=== PATIENT | female | born 1965 | race Caucasian/White ===

== ENCOUNTER → 2018-05-31 10:05 | Emergency (ER) | payer BC ==
[~2018-05-31 10:05] MED LIST: Ammonia Inhalant* 1 EA AMP ONE; Iohexol 350* (CONTRAST) 500 ML MDV IV ONE; NS 0.9% 1000 ML* 1,000 ML IV ONE; Ondansetron INJ* 2 MG/ML VIAL IV ONE
--- NOTE | 2018-05-31 10:18 | ED ---
Altered Mental Status - HPI Summary HPI Summary: Pt presents via ambulance w/ slowed mental status and loss of vision and ARAUJO this morning - took ibuprofen - ARAUJO better - intermittent dizziness w/ nausea. Dry mouth started yesterday - had to wire puller while driving yesterday as well d /t change in vision - friend drove her home Has been taking sudafed q 4 hrs for URI past week Takes synthroid and BP med Denies OverDose Drinks glass of wine nightly Has not urinated or eaten in a few days d/t not feeling well w/ "flu" - steroids listed on med list - admits taking these for "flu" - no issues w/ taking steroids in past MRI in 2017 - normal non-contrast - followed by Dr. Spencer for ??? EEG in 2016 normal Pt's called on phone and reports vertigo x 3 months - comes and lasts for 2-3 days at a time Pt is still working - had to leave once for dizziness and blurred vision - was seen by urgent care and rx'd meclizine (has difficulty getting in w/ PCP) - unsure if effective No fam h/o MS, seizure, stroke - History Of Current Complaint Stated Complaint: DIZZINESS Hx Obtained From: Patient - Allergies/Home Medications Allergies/Adverse Reactions: Allergies Allergy/AdvReac Type Severity Reaction Status Date / Time No Known Allergies Allergy Verified 01/29/16 11:06 PMH/Surg Hx/FS Hx/Imm Hx Previously Healthy: Yes Endocrine/Hematology History: Reports: Hx Thyroid Disease - hypothyroidism - takes levothyroxine Denies: Hx Diabetes Cardiovascular History: Reports: Hx Hypertension - per pt, on benicar - no med listed? Denies: Hx Pacemaker/ICD Respiratory History: Denies: Hx Asthma, Hx Chronic Obstructive Pulmonary Disease (COPD) GI History: Denies: Hx Gastrointestinal Bleed, Hx Ulcer History: Denies: Hx Renal Disease Musculoskeletal History: Denies: Hx Osteoporosis Sensory History: Denies: Hx Cataracts, Hx Eye Injury, Hx Eye Prosthesis, Hx Glaucoma, Hx Legally Blind, Hx Macular Degeneration, Hx Vision Problem, Hx Hearing Aid Neurological History: Reports: Other Neuro Impairments/Disorders - EEG in 2016 ( normal); MRI in 2017 (normal); h/o "vertigo" Denies: Hx CVA, Hx Dementia - dx'd w/ dementia by Johanna but this was rescinded as pt threatened to panda, Hx Headaches, Hx Migraine, Hx Peripheral Neuropathy, Hx Seizures, Hx Spinal Cord Injury, Hx Transient Ischemic Attacks ( TIA) Psychiatric History: Reports: Other Psychiatric Issues/Disorders - "mood d/o" - takes lamictal and valium PRN Denies: Hx Panic Disorder - Cancer History Hx Chemotherapy: No Hx Radiation Therapy: No - Surgical History Surgery Procedure, Year, and Place: BREAST REDUCTION 30+ YRS Infectious Disease History: Denies: Hx Hepatitis, Hx Human Immunodeficiency Virus (HIV) - Family History Family History: No FHx of Breast CA - Social History Occupation: Employed Full-time - counselor in school system Lives: With Family - has been out of town taking care of father on hospice Alcohol Use: Daily Alcohol Amount: wine Hx Substance Use: No Substance Use Type: Reports: None Hx Tobacco Use: No Smoking Status (MU): Never Smoked Tobacco Review of Systems Positive: Fatigue Eyes: Other - loss of vision ENT: Other - dry mouth - URI sx Cardiovascular: Negative Respiratory: Negative Gastrointestinal: Negative Genitourinary: Other - reports lack of urination Musculoskeletal: Negative Skin: Negative Positive: Headache, Weakness - generalized. Negative: Paresthesia, Numbness, Syncope Psychological: Other - stress - no kelli SI All Other Systems Reviewed And Are Negative: Yes Physical Exam Triage Information Reviewed: Yes Vital Signs Reviewed: Yes Appearance: Positive: Well-Nourished, Ill-Appearing - pt is lethargic, dry mouth , slow to respond to questions - appears disoriented but is alert and oriented x 3 Skin: Positive: Warm, Skin Color Reflects Adequate Perfusion, Dry - no ecchymosis, no signs of self harm Head/Face: Positive: Normal Head/Face Inspection - atraumatic Eyes: Positive: BARBY - dilated but reactive, Conjunctiva Clear, Other: - pt's eyelids are closed and she doesn't open them - does not follow finger. Negative : Conjunctiva Inflammed, Discharge ENT: Positive: Hearing grossly normal, TMs normal, Uvula midline, Other - oral mucosa extremely dry - dry peeling skin about nares. Negative: Nasal congestion , Nasal drainage, Tonsillar swelling, Tonsillar exudate, Trismus, Muffled voice , Hoarse voice Neck: Positive: Supple, Nontender, No Lymphadenopathy Respiratory/Lung Sounds: Positive: Clear to Auscultation, Breath Sounds Present. Negative: Rales, Rhonchi, Stridor, Tracheal Deviation, Wheezes Cardiovascular: Positive: Normal, RRR, S1, S2. Negative: Murmur, Rub, Leg Edema Left, Leg Edema Right Abdomen Description: Positive: Nontender, No Organomegaly, Soft Bowel Sounds: Positive: Present Neurological: Positive: Other - generalized weakness - drops arm when attempted to hand her emesis bag d/t c/o nausea - Enrique Coma Scale Best Eye Response: 2 - To Pain Best Motor Response: 6 - Obeys Commands - squeezes my hand when asked although weakly Best Verbal Response: 4 - Confused - provides most of history but slow to respond and does not have answers to all questions Coma Scale Total: 12 Diagnostics - Laboratory Result Diagrams: 05/31/18 10:24 05/31/18 10:23 Lab Statement: Any lab studies that have been ordered have been reviewed, and results considered in the medical decision making process. Re-Evaluation - Re-Evaluation First Eval Re-Evaluation Time: 11:26 Change: Unchanged Comment: Claims that she woke up feeling drugged and could not see. She is taking medication for her blood pressure. Denies a headache or neck stiffness. No meningismus. Second Eval Re-Evaluation Time: 11:30 Change: Unchanged Comment: Pt claims that she feels like she had vertigo. Has had vertigo. Yesterday while driving to work she claims that she had blurry vision lasting for one hour. When trying to get ready for work today she claims that she could not see. She reports that she has had a cold. She denies photophobia. Vital signs in room 78 bpm, BP 135/91. Third Eval Change: Improved - during neuro exam w/ Dr. Gilbert, pt's vision returned - nausea resolved and is eating applesauce w/o difficulty - admits she's been under a great deal of stress in addition to feeling sick with flu-like sx, not eating/drinking much past 4 days. Has not had f/u w/ PCP for this issue of vertigo but instead has been treating w/ meclizine - agrees to go to PCP within the week. Pt with her and agrees w/ plan as well. Altered Mental Statu Course/Dx - Course Course Of Treatment: Initially concerned for AMS - Ct Brain w/o acute findings. After Savanah Slater interviewed pt, he had concern for Amaurosis fugax - CTA ordered and no acute findings identified. Neuro consulted and pt's vision returned during his interview. Labs: WBC 17 (could be from recent illness, steroid); K 3.3 but other electrolytes WNL; TSH low and free T4 slightly elevated but does not appear to be thyroid storm or myxedema coma. SHe also denies anticholinergic meds and doesn't meet this criteria all the way around either. Drug screen positive for benzo's which are on her med list (valium) but pt denies taking in "a while" - concern that pt did in fact take this for stress reaction and possibly too many based on physical presentation but no SI reported. She also appears dehydrated and improved w/ NS - may have reaction from mixing meds in the face of recent illness and not eating/drinking much. Encouraged better self care and reducing meclizine to 12.5mg once as a day only needed. Also to avoid meds/liquids that can cause deydration. Suggested further testing w/ PCP for autoimmune d/o, including but not limited to Sjogren's. Clearly there is a strong element of stress. Pt's drove in from [place] and agrees to stay with his (the pt) and talk about a better plan for their current situation. Encouraged counseling. Pt will have close f/u w/ her PCP this week and return to ED if danger s/sx present. - Diagnoses Provider Diagnoses: Stress reaction, Dizziness Discharge - Sign-Out/Discharge Documenting (check all that apply): Patient Departure - Discharge Plan Condition: Stable Disposition: HOME Patient Education Materials: Vertigo (ED), Stress (ED) Forms: *Work Release Referrals: Philipp Wisdom MD [Medical Doctor] - Additional Instructions: The definitive cause of your symptoms was not identified today however life threatening conditions were ruled out. After much conversation, there appears to be a combination of baseline vertigo that was exacerbated by dehydration, recent illness, and stress. It is important that you follow-up with your PCP within a week to better address causes of your symptoms. One screening recommended is to rule out Sjogren's disease. Call your PCP today to schedule. You may continue to use meclizine for dizziness but only use 12.5mg with each dose and do not take more than once a day. Stay hydrated, nourished, and rest. Avoid driving until visual change resolve. *If you feel worse, return to the ED - Billing Disposition and Condition Condition: STABLE Disposition: Home
--- NOTE | 2018-05-31 10:39 | ED ---
Progress - Progress Note Progress Note: At 10:38 Cory Slater MD, went into the room to examine the patient but the patient was in imaging. At 10:50 the patient was examined. She has somewhat dilated pupils which are equal and reactive. She is requesting to be lifted up and has an odor of alcoholic beverage. She claims that she is dizzy and can't see. Re-Evaluation - Re-Evaluation First Eval Re-Evaluation Time: 11:26 Change: Unchanged Comment: Claims that she woke up feeling drugged and could not see. She is taking medication for her blood pressure. Denies a headache or neck stiffness. No meningismus. Second Eval Re-Evaluation Time: 11:30 Change: Unchanged Comment: Pt claims that she feels like she had vertigo. Has had vertigo. Yesterday while driving to work she claims that she had blurry vision lasting for one hour. When trying to get ready for work today she claims that she could not see. She reports that she has had a cold. She denies photophobia. Vital signs in room 78 bpm, BP 135/91. Third Eval Change: Improved - pt's vision returned - nausea resolved and is eating applesauce w/o difficulty - admits she's been under a great deal of stress in addition to feeling sick with flu-like sx, not eating much past 4 days. Has not had f/u w/ PCP for this issue and agrees to go within the week. Course/Dx - Course Course Of Treatment: At 10:38 Cory Slater MD, went into the room to examine the patient but the patient was in imaging. At 10:50 the patient was examined. She has somewhat dilated pupils which are equal and reactive. She is requesting to be lifted up and has an odor of alcoholic beverage. She claims that she is dizzy and can't see. The patient will be discharged and is agreeable with this plan. - Diagnoses Provider Diagnoses: Stress reaction, Dizziness Discharge - Sign-Out/Discharge Documenting (check all that apply): Patient Departure Receiving patient FROM: Savi Hernandez - Discharge Plan Condition: Stable Disposition: HOME Patient Education Materials: Vertigo (ED), Stress (ED) Forms: *Work Release Referrals: Philipp Wisdom MD [Medical Doctor] - Additional Instructions: The definitive cause of your symptoms was not identified today however life threatening conditions were ruled out. After much conversation, there appears to be a combination of baseline vertigo that was exacerbated by dehydration, recent illness, and stress. It is important that you follow-up with your PCP within a week to better address causes of your symptoms. One screening recommended is to rule out Sjogren's disease. Call your PCP today to schedule. You may continue to use meclizine for dizziness but only use 12.5mg with each dose and do not take more than once a day. Stay hydrated, nourished, and rest. Avoid driving until visual change resolve. *If you feel worse, return to the ED - Billing Disposition and Condition Condition: STABLE Disposition: Home - Attestation Statements Document Initiated by Patrick: Yes Documenting Scribe: Solo Blair Provider For Whom Patrick is Documenting (Include Credential): Cory Slater MD Scribe Attestation: Solo Souza scribed for Cory Slater MD on 05/31/18 at 2046. Scribe Documentation Reviewed: Yes Provider Attestation: The documentation as recorded by the Solo lara accurately reflects the service I personally performed and the decisions made by , Cory Slater MD Status of Scribe Document: Viewed
[2018-05-31 10:43] LABS: Hematocrit 41 % (35-47); Hemoglobin 13.8 g/dl (12.0-16.0); Mean Corpuscular HGB Conc 34 g/dl (31-36); Mean Corpuscular Hemoglobin 30 pg (27-31); Mean Corpuscular Volume 90 fL (80-97); Mean Platelet Volume 7.5 fL (7.4-10.4); Platelet Count 347 10^3/ul (150-450); Red Blood Count 4.55 10^6/ul (4.00-5.40); Red Cell Distribution Width 13 % (10.5-15); White Blood Count 17.5 10^3/ul (3.5-10.8)
[2018-05-31 10:47] LABS: INR 0.91 (0.77-1.02)
[2018-05-31 10:51] LABS: ALT 21 U/L (7-52); AST 18 U/L (13-39); Albumin 3.7 g/dL (3.2-5.2); Albumin/Globulin Ratio 1.2 (1-3); Alkaline Phosphatase 65 U/L (34-104); Anion Gap 10 mmol/L (2-11); BUN/Creatinine Ratio 15.6 (8-20); Blood Urea Nitrogen 15 mg/dL (6-24); CO2 Carbon Dioxide 21 mmol/L (22-32); Calcium 9.4 mg/dL (8.6-10.3); Chloride 104 mmol/L (101-111); EGFR African American 73.6 (>60); EGFR Non-African American 60.8 (>60); Glucose 168 mg/dL (70-100); Magnesium 2.1 mg/dL (1.9-2.7); Potassium 3.3 mmol/L (3.5-5.0); Sodium 135 mmol/L (135-145); Total Protein 6.7 g/dL (6.4-8.9)
[2018-05-31 11:19] LABS: ABS Basophils 0.1 10^3/ul (0-0.2); ABS Eosinophils 0.3 10^3/ul (0-0.6); ABS Lymphocytes 3.8 10^3/ul (1.0-4.8); ABS Neutrophils 12.3 10^3/ul (1.5-7.7); ABS Nucleated RBC 0 10^3/ul; Eosinophil % 1.8 %; Lymphocyte % 21.8 %; Nucleated Red Blood Cells % 0
[2018-05-31 11:20] LABS: Acetaminophen < 15 mcg/mL; Alcohol < 10 mg/dL (<10)
[2018-05-31 11:35] LABS: TSH (Thyroid Stimulating Horm) 0.11 mcIU/mL (0.34-5.60)
[2018-05-31 11:42] LABS: C Reactive Protein < 1.00 mg/L (<8.01)
[2018-05-31 11:57] LABS: Free T4 1.79 ng/dL (0.61-1.12)
[2018-05-31 16:30] LABS: Urine Appearance Clear; Urine Bilirubin Negative (Negative); Urine Blood Negative (Negative); Urine Color Yellow; Urine Glucose Negative (Negative); Urine Ketones 1+ (Negative); Urine Nitrite Negative (Negative); Urine Protein Negative (Negative); Urine Specific Gravity > 1.060 (1.010-1.030); Urine Urobilinogen Negative (Negative)
[2018-05-31 16:58] LABS: Barbiturates Urine Screen None Detected (None Detect); Benzodiazepine Urine Screen Presumptive Positive (None Detect); Urine Cannabinoids Screen None Detected (None Detect)
[2018-05-31 17:11] VITALS: BP 115/80
--- NOTE | 2018-05-31 18:51 | CONS ---
NEUROLOGY CONSULTATION NOTE: DATE OF CONSULT: 05/31/18 - EMERGENCY DEPT CONSULTING PROVIDER: OCTAVIO Jacobson REASON FOR CONSULT: Bilateral vision loss and inability to open eyes. CHIEF COMPLAINT: Dizziness. 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 with intermittent dizziness and vision disturbance. The patient stated that she had the flu last week and was recently treated for laryngitis. She developed symptoms of blurry vision involving both eyes. Her eyes are closed and she has trouble opening her eyes. This started gradually 3 days ago but it improved with time. She has had multiple similar episodes in the past. According to her , Alonzo, who is at bedside, this is her third episode. She stated that when her eyes closed she cannot see anything. She has trouble opening her eyes , but she also informed me that she closes her eyes because she feels dizzy and it helps when her eyes are closed. The dizziness was described as vertigo. She denied any tinnitus or hearing loss. She denied any focal weakness or paresthesias. She does complain of severe dry mouth and generalized malaise/ fatigue. She was having trouble driving yesterday and had to cloth covered helmet puller and call her neighbor to take her home. She was also having difficulty calling EMS today to get her to the hospital, so she had to speak to her iPhone using [employer]. During the interview today, the patient suddenly opened her eyes and was in shock, stating that "I can now see just fine." The patient has history of gait abnormalities in the past and was evaluated by Dr. Mack, neurologist, for possible multiple sclerosis. She was diagnosed with anxiety. She was happy to hear that she does not have multiple sclerosis. She was seen and evaluated by Dr. Spencer in the past as well. PAST MEDICAL HISTORY: Thyroid disease, anxiety, bipolar disorder, and vertigo. MEDICATIONS: 1. Levothyroxine 137 mcg p.o. at 8 o'clock. 2. Progesterone. 3. [place]-3. 4. Estradiol. 5. Calcium 500 mg p.o. 6. Meclizine 25 mg p.o. t.i.d. ALLERGIES: No known drug allergies. FAMILY HISTORY: No family history of stroke or seizures. SOCIAL HISTORY: The patient denied tobacco use. She drinks a glass of wine a week. She is going through many stressors as her [id number] has cancer and he is in hospice care at this time. Her , Alonzo, left to care for his father and has not been around for 3 months, which has been significantly stressful for the patient. Alonzo stated that he usually reminds the patient to stay hydrated and eat well and she may have not been hydrating over the last few days. Not having Alonzo around, the patient stated that her anxiety is not well controlled. 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 REVIEW OF SYSTEMS: A 14-point review of systems was reviewed and otherwise negative except for what was mentioned in the HPI. PHYSICAL EXAM: Vitals: Temperature of 96.8, heart rate of 81, respiratory rate of 14, oxygen saturation of 88%, blood pressure of 112/83. General: Well- nourished, well-developed female, in no acute distress. Head is atraumatic, normocephalic with no obvious abnormality. Neck is supple with no carotid bruits. No lymphadenopathy. Lungs: Clear to auscultation bilaterally. Cardiovascular: Regular rate and rhythm with normal S1, S2. Extremities: Normal range of motion with no cyanosis. Skin: No skin lesions or lacerations. Psych: Affect is flat and slightly anxious mood. However, easy to establish rapport. Neurological Examination: Mental Status: Awake, alert, and oriented to person, place, time, and general circumstances. Speech and language including expression, naming, repetition, and comprehension were all assessed and found to be normal. Cranial Nerves: Undilated fundoscopic examination shows normal disc margins. Normal confrontation testing bilaterally. Pupils are mid range and reactive to light. Normal consensual response. Extraocular muscles are intact. Sensation is intact on the forehead, cheeks, and jaw region. No facial droop. She is able to hear throughout the history process. Symmetrical palatal elevation. Normal strength against shoulder resistance. Tongue is symmetrical and midline. Please note that the patient initially had her eyes closed throughout the first 10- 15 minutes of the interview and then suddenly opened her eyes and stated that she can see again and feels like her vision is slowly recovering. Motor Examination: No abnormal movements or pronator drift. Normal bulk and tone throughout. No fasciculation. Motor strength 5/5 throughout the upper and lower extremities. Reflexes 2+ throughout with flexor plantar response bilaterally. Sensation is intact to light touch throughout. Normal vibratory and proprioception at the great toes. Coordination: Normal [id number] and rapid alternating movements. Gait: Narrow based. No ataxia, but the patient has an abasia-astasia gait where she tries to fall towards the right and left and catches herself before completely falls. I did walk her around the emergency room hallway and she did fairly well with some assistance. DIAGNOSTIC STUDIES/LAB DATA: WBC of 17.5, hemoglobin 13.8, hematocrit 41, platelet count of 347, ESR of 17. Sodium 135, potassium 3.3, chloride 104, carbon dioxide 21, anion gap is 10, creatinine 0.96, glucose 168. TSH 0.11, free T4 1.79. C- reactive protein less than 1. CT head and CTA head and neck were obtained and otherwise unremarkable with no evidence of acute intracranial abnormality, vascular malformation, aneurysm, or occlusion. ASSESSMENT AND RECOMMENDATIONS: Ms. Edda Sloan is a 52-year-old very pleasant female, who has a history of vertigo and gait imbalance, who presented with a gradual onset of vertigo and visual complaints. The patient's eyes were closed throughout the day and she was reporting that she had difficulty opening her eyes, hence she could not see. However, later on this afternoon, the patient's eyes were widely open and she could "suddenly" see again. The patient stated that she is undergoing many stressors recently given that her sriyqd-rr-eur has terminal cancer and is in hospice care and her has to care of his father and has not been around. The patient's spouse has been out of town for three weeks and that has caused heightened stress to the patient. n neurological examination, she has normal motor strength and no reflex asymmetry. She has an abasia-astasia type of gait that improves with slight distraction as well as encouragement. Overall, based on my neurological assessment, I suspect the patient has an acute stress reaction that is causing some of her neurological complaints with superimposed peripheral vertigo (e.g., viral labyrinthitis or BPPV), which she has had in the past. I recommend outpatient physical therapy focusing on balance training and vestibular rehabilitation. I recommend reducing the meclizine to 12.5 mg t.i.d. as needed for vertigo, but it is reasonable to take it regularly the next 3 days. I discussed evaluation of her dry mouth, abnormal thyroid function panel with her primary care physician. If not yet obtained, other conditions that can cause dry mouth need to be checked include autoimmune condition such as lupus, Sjogren's, and myasthenia gravis (less likely since her eye closure immediately resolved). Please order the following labs as an outpatient: AL, double-stranded DNA, SSA-SSB, anticardiolipin checking for antiphospholipid syndrome, and acetylcholine receptor binding antibody. If the results are abnormal, please refer her to our outpatient practice for further evaluation and followup. The patient stated that she does not need a neurological followup at this time. She declined a psychiatric evaluation. She would benefit from cognitive behavioral therapy as an outpatient. TIME SPENT: I spent a total of 75 minutes obtaining history, examining the patient, and discussing the treatment plan with the patient; her , Alonzo; Dr. Castillo. [id number]/[facility] #: [id number] FAINA
== END | disposition home or self-care (01) ==
LOC: ED 10:05
DX: F43.9 Reaction to severe stress, unspecified (principal); R42 Dizziness and giddiness; I10 Essential (primary) hypertension; E03.9 Hypothyroidism, unspecified; F41.9 Anxiety disorder, unspecified; J06.9 Acute upper respiratory infection, unspecified
CPT/HCPCS: 36415; 70450; 70496; 70498; 71045; 80053; 80307; 80320; 80329; 81003; 83605; 83735; 84439; 84443; 84484; 85025; 85379; 85610; 85652; 86140; 93005; 96361; 96374; 99283; A9270-GY; G0480; J2405; Q9967